=== PATIENT | female | born 1940 | race Caucasian/White ===

== ENCOUNTER → 2016-10-08 | Outpatient (CLI) | payer OTHER, BC ==
[~2016-10-08] MED LIST: ASPI-435 PO; ATOR-22 PO; CALCTAB5 PO; CHOL100010 PO; COLE1TAB5 PO; CYAN10005 PO; DIPH-416 PO; LEVO75TA PO; LSN20 PO; MESA800T6 PO; MULT-190 PO; ONDA8TAB12 PO; POTA20TA16 PO; PROC1TAB5 PO; PRT/20 PO; SENN-65 PO; TORS20TA2 PO; Torsemide PO; ZOLP6.252 PO; vitamin d PO
--- NOTE | 2016-10-08 16:56 | MAMMOGRAPHY REPORT ---
BILATERAL DIGITAL DIAGNOSTIC MAMMOGRAM TOMOSYNTHESIS WITH CAD: 10/08/2016 CLINICAL HISTORY: Annual bilateral mammography. Patient has a personal history of right breast canc er status post treatment. She also has a new diagnosis of small cell lung cancer and has been under going treatment. TECHNIQUE: Bilateral CC and MLO 2-D digital and tomosynthesis images, spot magnification right CC an d ML views were obtained. Current study was also evaluated with a Computer Aided Detection (CAD) sys tem. COMPARISON: Comparison is made to exams dated: 10/08/2015 mammogram, 05/11/2015 mammogram, 04/04/2015 ultrasound, 04/04/2015 mammogram, and 10/23/2014 ultrasound - [facility]. BREAST COMPOSITION: There are scattered areas of fibroglandular density in both breasts. FINDINGS: There is expected architectural distortion and associated surgical clips in the upper out er posterior right breast, at the site of prior lumpectomy. There are mild vascular calcifications and a few scattered benign coarse calcifications in the breasts. No suspicious mass, architectural distortion or cluster of microcalcifications is seen. IMPRESSION: ACR BI-RADS CATEGORY 2: BENIGN Stable bilateral mammograms, without mammographic evidence of malignancy. Advise bilateral mammogra phy in one year. These results and recommendations were discussed with the patient at the time of t he exam. Approximately 10% of breast cancers are not detected with mammography. A negative mammographic repor t should not delay biopsy if a clinically suggestive mass is present. Berkley Flanagan M.D. ay/:10/08/2016 15:14:07 Hoisting Engineer Pile Driving: Gricel HERNANDEZ)(Nettie), [facility] letter sent: Normal 1/2 BI-RADS Code: ACR BI-RADS Category 2: Benign
== END | disposition home or self-care (01) ==
LOC: C.MAMM 13:57
PROVIDERS: ATTEND Internal Medicine
DX: Z12.31 Encounter for screening mammogram for malignant neoplasm of breast (principal)

== ENCOUNTER → 2017-01-08 | Outpatient (CLI) | payer OTHER, BC ==
[~2017-01-08] MED LIST changes: +MESA1TAB4 PO; -MESA800T6 PO
[2017-01-08 17:27] LABS: BLOOD UREA NITROGEN 17 mg/dl (7-18); CREATININE 0.92 mg/dl (0.60-1.20)
== END | disposition home or self-care (01) ==
LOC: C.LABBC 13:36
PROVIDERS: ATTEND Internal Medicine
DX: R42 Dizziness and giddiness (principal)

== ENCOUNTER → 2017-01-12 | Outpatient (CLI) | payer OTHER, BC ==
[~2017-01-12] MED LIST changes: +GADAVIST IV PRN
--- NOTE | 2017-01-12 13:15 | DIAGNOSTIC IMAGING REPORT ---
MRI OF THE BRAIN WITHOUT AND WITH IV CONTRAST CLINICAL HISTORY: DISEQUILIBRIUM COMPARISON STUDY: 02/07/2016 TECHNIQUE: MRI of the brain was performed from the vertex to the skull base utilizing various T1 and T2 weighted sequences. Following the IV administration of 6 mL of Gadavist contrast, additional enhanced images were obtained. FINDINGS: Sagittal T1, axial diffusion, proton density and T2 weighted axial, coronal FLAIR, and pre and post axial T1-weighted images were acquired. These were supplemented with post gadolinium coronal T1 weighted images. No intra or extra-axial mass lesions are visualized. Axial diffusion-weighted images reveal no evidence of acute or subacute infarction. There is no evidence of ventricular dilatation. Proton density T2-weighted and FLAIR images reveal scattered foci of increased T2 signal within the white matter, likely on a small vessel basis. There are no abnormal flow voids. There is no evidence of pathologic enhancement. There are inflammatory changes present within the maxillary frontal and ethmoid sinuses IMPRESSION: 1. Progressive paranasal sinus disease 2. No acute intracranial findings. No evidence of acute or subacute infarction. 3. No pathologically enhancing masses Electronically signed by: Mike Mueller M.D. 01/12/2017 1:13 PM Dictated Date/Time: 01/12/2017 1:07 PM
== END | disposition home or self-care (01) ==
LOC: C.MRIBC 11:37
PROVIDERS: ATTEND Internal Medicine
DX: R42 Dizziness and giddiness (principal)

== ENCOUNTER → 2017-03-03 | Outpatient (CLI) | payer OTHER, BC ==
[~2017-03-03] MED LIST changes: -GADAVIST IV PRN
[2017-03-03 17:10] LABS: BASO % 0.5 %; BASO ABS # 0.03 K/uL (0-0.2); COMPLETE YES; EOS % 1.6 %; HEMATOCRIT 30.1 % (37-47); IG% 0.2 %; LYMPH % 18.3 %; LYMPH ABS # 1.13 K/uL (1.2-3.4); MEAN CELL VOLUME 82.5 fL (80-100); MEAN CORPUSCULAR HEMOGLOBIN 25.8 pg (25-34); MEAN CORPUSCULAR HGB CONC 31.2 g/dl (32-36); MEAN PLATELET VOLUME 10.3 fL (7.4-10.4); MONO % 8.1 %; NEUT % 71.3 %; PLATELET COUNT 326 K/uL (130-400); RED BLOOD COUNT 3.65 M/uL (4.2-5.4); WHITE BLOOD COUNT 6.19 K/uL (4.8-10.8)
[2017-03-03 17:24] LABS: ALT/SGPT 20 U/L (12-78); BLOOD UREA NITROGEN 14 mg/dl (7-18); BUN/CREATININE RATIO 18.3 (10-20); CALCIUM 8.7 mg/dl (8.5-10.1); CARBON DIOXIDE 23 mmol/L (21-32); CHLORIDE 106 mmol/L (98-107); CREATININE 0.79 mg/dl (0.60-1.20); GLUCOSE 108 mg/dl (70-99); POTASSIUM 4.7 mmol/L (3.5-5.1); SODIUM 139 mmol/L (136-145)
[2017-03-03 17:37] LABS: ALB/GLOB RATIO 0.9 (0.9-2); ALKALINE PHOSPHATASE 77 U/L (45-117); AST/SGOT 20 U/L (15-37); THYROID STIMULATING HORMONE 0.985 uIu/ml (0.300-4.500)
--- NOTE | 2017-03-09 11:56 | CODING QUERY MEDICAL NECESSITY ---
SUPPORTING DIAGNOSIS NEEDED A supporting diagnosis is required for the test/procedure performed on this patient in order for us to be reimbursed by the patient's insurance. Please provide a supporting diagnosis for the following test/procedure listed below next to the test name along with your signature. *If there is no additional diagnosis for this patient that would support the following test/procedure please document that below next to the test/procedure. Test(s)/Procedure(s) that require a supporting diagnosis: * VITAMIN D, 25-HYDROXY DIAGNOSIS: Provider Signature: Date: Thank you Maxine Kamara [employer] Once completed, please kindly fax back to [phone] For questions please call [phone]
== END | disposition home or self-care (01) ==
LOC: C.LABBC 13:31
PROVIDERS: ATTEND Internal Medicine
DX: R11.0 Nausea (principal); K50.90 Crohn's disease, unspecified, without complications

== ENCOUNTER → 2017-09-10 | Outpatient (CLI) | payer OTHER, BC ==
[~2017-09-10] MED LIST changes: -ONDA8TAB12 PO; -PROC1TAB5 PO; -TORS20TA2 PO
[2017-09-10 16:51] LABS: BASO % 0.3 %; BASO ABS # 0.02 K/uL (0-0.2); COMPLETE YES; EOS % 1.5 %; HEMATOCRIT 37.6 % (37-47); IG% 0.1 %; LYMPH % 15.9 %; LYMPH ABS # 1.23 K/uL (1.2-3.4); MEAN CELL VOLUME 88.9 fL (80-100); MEAN CORPUSCULAR HEMOGLOBIN 28.6 pg (25-34); MEAN CORPUSCULAR HGB CONC 32.2 g/dl (32-36); MEAN PLATELET VOLUME 9.6 fL (7.4-10.4); MONO % 6.8 %; NEUT % 75.4 %; PLATELET COUNT 316 K/uL (130-400); RED BLOOD COUNT 4.23 M/uL (4.2-5.4); WHITE BLOOD COUNT 7.75 K/uL (4.8-10.8)
[2017-09-10 17:02] LABS: BLOOD UREA NITROGEN 22 mg/dl (7-18); BUN/CREATININE RATIO 23.3 (10-20); CALCIUM 9.1 mg/dl (8.5-10.1); CARBON DIOXIDE 26 mmol/L (21-32); CHLORIDE 100 mmol/L (98-107); CREATININE 0.95 mg/dl (0.60-1.20); GLUCOSE 101 mg/dl (70-99); POTASSIUM 4.4 mmol/L (3.5-5.1); SODIUM 133 mmol/L (136-145)
[2017-09-10 17:11] LABS: ALKALINE PHOSPHATASE 79 U/L (45-117); ALT/SGPT 20 U/L (12-78); AST/SGOT 13 U/L (15-37); THYROID STIMULATING HORMONE 0.483 uIu/ml (0.300-4.500); TOTAL IRON BINDING CAPACITY 363 mcg/dl (250-450)
== END | disposition home or self-care (01) ==
LOC: C.LABBC 15:14
PROVIDERS: ATTEND Internal Medicine
DX: I65.29 Occlusion and stenosis of unspecified carotid artery (principal); K50.90 Crohn's disease, unspecified, without complications; I47.1 Supraventricular tachycardia; C34.90 Malignant neoplasm of unspecified part of unspecified bronchus or lung; C77.9 Secondary and unspecified malignant neoplasm of lymph node, unspecified

== ENCOUNTER → 2017-10-23 | Outpatient (CLI) | payer OTHER, BC ==
--- NOTE | 2017-10-26 07:41 | MAMMOGRAPHY REPORT ---
BILATERAL DIGITAL SCREENING MAMMOGRAM TOMOSYNTHESIS WITH CAD: 10/23/2017 CLINICAL HISTORY: Asymptomatic. Personal history of breast cancer. TECHNIQUE: Breast tomosynthesis in addition to standard 2D mammography was performed. Current study was also evaluated with a Computer Aided Detection (CAD) system. COMPARISON: Comparison is made to exams dated: 10/08/2016 mammogram, 10/08/2015 mammogram, 05/11/2015 u ltrasound, 05/11/2015 mammogram, 04/04/2015 ultrasound, and 04/04/2015 mammogram - [facility]. BREAST COMPOSITION: There are scattered areas of fibroglandular density in both breasts. FINDINGS: No suspicious masses, calcifications, or areas of architectural distortion are noted in ei ther breast. There has been no significant interval change compared to prior exams. There are stable postsurgical changes in the right upper outer quadrant from prior lumpectomy. IMPRESSION: ACR BI-RADS CATEGORY 2: BENIGN There is no mammographic evidence of malignancy. A 1 year screening mammogram is recommended. The pa tient will receive written notification of the results. Approximately 10% of breast cancers are not detected with mammography. A negative mammographic report should not delay biopsy if a clinically suggestive mass is present. Louisa Akhtar M.D. /:10/23/2017 15:37:28 Cardiac Exercise Specialist: Samantha Cortes, [facility] letter sent: Normal 1/2 BI-RADS Code: ACR BI-RADS Category 2: Benign
== END | disposition home or self-care (01) ==
LOC: C.MAMM 15:02
PROVIDERS: ATTEND Internal Medicine
DX: Z12.31 Encounter for screening mammogram for malignant neoplasm of breast (principal)

== ENCOUNTER → 2018-01-26 | Outpatient (CLI) | payer OTHER, BC ==
[~2018-01-26] MED LIST changes: +POTA-639 PO; -POTA20TA16 PO
[2018-01-26 14:01] LABS: BASO % 0.6 %; BASO ABS # 0.03 K/uL (0-0.2); EOS % 4.8 %; EOS ABS # 0.24 K/uL (0-0.5); HEMATOCRIT 35.4 % (37-47); HEMOGLOBIN 11.2 g/dL (12.0-16.0); LYMPH % 20.8 %; LYMPH ABS # 1.04 K/uL (1.2-3.4); MEAN CELL VOLUME 89.8 fL (80-100); MEAN CORPUSCULAR HEMOGLOBIN 28.4 pg (25-34); MEAN CORPUSCULAR HGB CONC 31.6 g/dl (32-36); MEAN PLATELET VOLUME 9.8 fL (7.4-10.4); NEUT % 65.8 %; PLATELET COUNT 268 K/uL (130-400); RED CELL DISTRIBUTION WIDTH CV 14.2 % (11.5-14.5); RED CELL DISTRIBUTION WIDTH SD 47.3 fL (36.4-46.3); WHITE BLOOD COUNT 5.01 K/uL (4.8-10.8)
[2018-01-26 14:49] LABS: ALBUMIN 3.4 gm/dl (3.4-5.0); ALT/SGPT 12 U/L (12-78); AST/SGOT 14 U/L (15-37); BLOOD UREA NITROGEN 13 mg/dl (7-18); CALCIUM 9.1 mg/dl (8.5-10.1); CARBON DIOXIDE 26 mmol/L (21-32); CHOLESTEROL 107 mg/dl (0-200); CREATININE 0.59 mg/dl (0.60-1.20); GLUCOSE 88 mg/dl (70-99); POTASSIUM 4.3 mmol/L (3.5-5.1); SODIUM 139 mmol/L (136-145)
[2018-01-26 15:00] LABS: ALKALINE PHOSPHATASE 77 U/L (45-117); LDL CHOLESTEROL CALCULATED 34 mg/dl; TOTAL PROTEIN 7.1 gm/dl (6.4-8.2)
== END | disposition home or self-care (01) ==
LOC: C.LABBC 10:38
PROVIDERS: ATTEND Internal Medicine
DX: J44.9 Chronic obstructive pulmonary disease, unspecified (principal); I10 Essential (primary) hypertension; K50.90 Crohn's disease, unspecified, without complications; E03.9 Hypothyroidism, unspecified; C34.90 Malignant neoplasm of unspecified part of unspecified bronchus or lung; I65.29 Occlusion and stenosis of unspecified carotid artery

== ENCOUNTER → 2018-01-27 | Outpatient (CLI) | payer OTHER, BC ==
--- NOTE | 2018-01-27 16:12 | DIAGNOSTIC IMAGING REPORT ---
L-SPINE MIN 4 VIEWS ROUTINE CLINICAL HISTORY: M48.061 back and left hip pain COMPARISON STUDY: No previous studies for comparison. FINDINGS: The bones are osteopenic. No acute fractures are visualized. There is a grade 1 spondylolisthesis of L4 on L5. There is disc space narrowing at the L4-5 and L5-S1 levels. There is mild joint space narrowing involving the left hip. IMPRESSION: 1. No acute fractures 2. Degenerative changes most pronounced the L4-5 and L5-S1 levels. Grade 1 spondylolisthesis of L4 on L5 Electronically signed by: Mike Mueller M.D. 01/27/2018 4:11 PM Dictated Date/Time: 01/27/2018 4:09 PM
--- NOTE | 2018-01-27 16:12 | DIAGNOSTIC IMAGING REPORT ---
L HIP UNILATERAL 2 VIEWS CLINICAL HISTORY: 77 years-old Female presenting with M48.061 ongoing left hip pain, no history of injury. TECHNIQUE: Frontal and frog-leg lateral views of the left hip were obtained. COMPARISON: PET/CT from 2016. FINDINGS: Left hip joint congruent. Mild osteophytosis suggested. No significant joint space loss. No acute fracture or malalignment. No advanced degenerative change. No radiographic soft tissue abnormality. IMPRESSION: 1. No acute osseous injury. 2. Mild degenerative changes of the left hip. Electronically signed by: Radu Garcia M.D. 01/27/2018 4:11 PM Dictated Date/Time: 01/27/2018 4:09 PM
== END | disposition home or self-care (01) ==
LOC: C.RADBC 15:44
PROVIDERS: ATTEND Internal Medicine
DX: M48.061 Spinal stenosis, lumbar region without neurogenic claudication (principal); M16.12 Unilateral primary osteoarthritis, left hip